=== PATIENT | female | born 1990 | race Caucasian/White ===

== ENCOUNTER → 2017-04-12 | Outpatient (CLI) | payer OTHER | END | disposition home or self-care (01) | LOC: Rad HDHVI 15:03 | PROVIDERS: ATTEND Internal Medicine Cardiovascular Disease | DX: R09.81 Nasal congestion (principal); R51 Headache | CPT/HCPCS: 70220 ==

== ENCOUNTER → 2017-05-01 | Outpatient (CLI) | payer OTHER ==
[2017-05-01 11:50] VITALS: BP 132/79
[2017-05-01 13:00] VITALS: BP 121/82
[2017-05-01 16:15] LABS: Basophils # (auto) 0 uL; Basophils % (auto) 0.3 % (0.0-2.0); CONDITION Y; Eosinophils # (auto) 0.1 uL; Eosinophils % (auto) 0.5 % (0.0-7.0); Hematocrit 45.9 % (36.0-46.0); Hemoglobin 15.4 g/dL (12.2-16.2); Lymphocytes # (auto) 2.1 uL; Lymphocytes % (auto) 21.1 % (10.0-50.0); Mean Corpuscular Hemoglobin 30.6 pg (28.0-32.0); Mean Corpuscular Hgb Conc. 33.6 g/dL (32.0-36.0); Mean Platelet Volume 9.1 fL (7.4-10.4); Monocytes # (auto) 0.8 uL; Monocytes % (auto) 7.7 % (0.0-12.0); Neutrophils # (auto) 7.1 uL; Neutrophils % (auto) 70.4 % (37.0-80.0); Platelet Count (auto) 347 10^3/uL (140-450); Red Cell Distribution Width 12.9 % (11.6-16.0)
[2017-05-01 16:25] LABS: BUN/Creatinine Ratio 15.2; Calcium 9.6 mg/dL (8.5-10.1); Magnesium 2.6 mg/dL (1.6-2.6); Potassium 3.6 mmol/L (3.5-5.1)
== END | disposition home or self-care (01) ==
LOC: CHF HDHVI 11:54
PROVIDERS: ATTEND Internal Medicine Cardiovascular Disease
DX: Z32.00 Encounter for pregnancy test, result unknown (principal); I10 Essential (primary) hypertension; E83.42 Hypomagnesemia; D64.9 Anemia, unspecified; R55 Syncope and collapse
CPT/HCPCS: 36415; 80048; 83735; 84702; 85025

== ENCOUNTER → 2017-05-04 | Outpatient (CLI) | payer OTHER ==
[2017-05-04 11:25] VITALS: BP_SYST 124; BP_SYST 128; BP_DIAS 83; BP_DIAS 86
[2017-05-04 12:10] VITALS: BP 119/74
== END | disposition home or self-care (01) ==
LOC: CHF HDHVI 11:24
PROVIDERS: ATTEND Internal Medicine Cardiovascular Disease
DX: I10 Essential (primary) hypertension (principal); R55 Syncope and collapse
CPT/HCPCS: G0463

== ENCOUNTER → 2017-05-12 | Outpatient (CLI) | payer OTHER | END | disposition home or self-care (01) | LOC: Rad HDHVI 08:06 | PROVIDERS: ATTEND Internal Medicine Cardiovascular Disease | DX: I08.0 Rheumatic disorders of both mitral and aortic valves (principal) | CPT/HCPCS: 93306 ==

== ENCOUNTER → 2018-04-27 | Outpatient (CLI) | payer OTHER ==
[~2018-04-27] VITALS: Ht 152.4 cm; Wt 54.4 kg
== END | disposition home or self-care (01) ==
LOC: Rad HDHVI 08:03
PROVIDERS: ATTEND Internal Medicine Cardiovascular Disease
DX: R07.89 Other chest pain (principal); I10 Essential (primary) hypertension
CPT/HCPCS: 93017

== ENCOUNTER → 2019-05-27 | Outpatient (CLI) | payer BC, OTHER | END | disposition home or self-care (01) | LOC: Rad HDHVI 08:05 | PROVIDERS: ATTEND Internal Medicine Cardiovascular Disease | DX: I47.9 Paroxysmal tachycardia, unspecified (principal); I10 Essential (primary) hypertension | CPT/HCPCS: 93306 ==

== ENCOUNTER → 2019-07-30 | Outpatient (CLI) | payer BC ==
[2019-07-30 08:43] LABS: Basophils # (auto) 0 uL; Basophils % (auto) 0.2 % (0.0-2.0); Eosinophils # (auto) 0 uL; Eosinophils % (auto) 0.4 % (0.0-7.0); Hematocrit 37.3 % (36.0-46.0); Hemoglobin 12.9 g/dL (12.2-16.2); Lymphocytes # (auto) 1.7 uL; Lymphocytes % (auto) 14.3 % (10.0-50.0); Mean Corpuscular Hemoglobin 32.1 pg (28.0-32.0); Mean Corpuscular Hgb Conc. 34.5 g/dL (32.0-36.0); Mean Corpuscular Volume 92.9 fL (80.0-100.0); Monocytes # (auto) 0.7 uL; Monocytes % (auto) 6.2 % (0.0-12.0); Neutrophils # (auto) 9.3 uL; Neutrophils % (auto) 78.9 % (37.0-80.0); Platelet Count (auto) 219 10^3/uL (140-450); Red Blood Cells 4.01 10^6/uL (4.0-5.20); Red Cell Distribution Width 13.3 % (11.8-14.3); White Blood Cell 11.7 10^3/uL (4.4-10.8)
== END | disposition home or self-care (01) ==
LOC: LAB 08:19
PROVIDERS: ATTEND Obstetrics & Gynecology
DX: O99.810 Abnormal glucose complicating pregnancy (principal); Z3A.27 27 weeks gestation of pregnancy
CPT/HCPCS: 36415; 82951; 83036; 85025

== ENCOUNTER 2019-08-28 09:02 | Observation (INO) | payer BC ==
[~2019-08-28] VITALS: Ht 152.4 cm; Wt 64.0 kg
[2019-08-28] MEDS ORDERED: LACTATED RINGER'S 1,000 ML IV ONE (10:30)
[2019-09-05] MEDS ORDERED: PREN-96 PO (09:19)
== END 2019-08-28 11:45 | disposition home or self-care (01) | DRG 832 ==
LOC: LDRP 09:02
PROVIDERS: ADMIT Obstetrics & Gynecology; ATTEND Obstetrics & Gynecology
DX: O60.03 Preterm labor without delivery, third trimester (principal); O99.413 Diseases of the circulatory system complicating pregnancy, third trimester; O24.410 Gestational diabetes mellitus in pregnancy, diet controlled; I49.3 Ventricular premature depolarization; Z3A.32 32 weeks gestation of pregnancy
CPT/HCPCS: 59025; 76818; 81002; 82948; 82962; G0378; 96365

== ENCOUNTER 2019-08-30 19:08 | Observation (INO) | payer BC ==
[2019-08-30] MEDS ORDERED: PREN-153 OR (19:44)
[2019-09-05] MEDS ORDERED: PREN-96 PO (09:19)
== END 2019-08-30 23:19 | disposition home or self-care (01) | DRG 833 ==
LOC: LDRP 19:08
PROVIDERS: ADMIT Specialist; ATTEND Specialist
DX: O60.03 Preterm labor without delivery, third trimester (principal); O62.9 Abnormality of forces of labor, unspecified; Z3A.32 32 weeks gestation of pregnancy
CPT/HCPCS: 59025; 81002; 82962; G0378

== ENCOUNTER 2019-09-02 13:09 | Observation (INO) | payer BC ==
[~2019-09-02] VITALS: Ht 152.4 cm; Wt 64.0 kg
[~2019-09-02 13:09] MED LIST: PREN-153 OR
[2019-09-05] MEDS ORDERED: PREN-96 PO (09:19)
== END 2019-09-02 14:50 | disposition home or self-care (01) | DRG 833 ==
LOC: LDRP 13:09
PROVIDERS: ADMIT Specialist; ATTEND Specialist
DX: O62.9 Abnormality of forces of labor, unspecified (principal); O24.419 Gestational diabetes mellitus in pregnancy, unspecified control; Z3A.33 33 weeks gestation of pregnancy
CPT/HCPCS: 59025; 76818; 81002; 82962; G0378

== ENCOUNTER 2019-09-05 10:24 | Emergency (ER) | payer BC ==
[~2019-09-05] VITALS: Ht 152.4 cm; Wt 64.4 kg
[~2019-09-05 10:24] MED LIST changes: +BETAMETHASONE ACET (6MG/ML) 5ML VIAL IM SCH; -PREN-153 OR; +PREN-96 PO
[2019-09-05 11:09] VITALS: BP 140/88
[2019-09-05] MEDS ORDERED: LACTATED RINGER'S 1,000 ML IV ONE (12:45)
== END 2019-09-05 12:10 | disposition home or self-care (01) ==
LOC: UNDODISOB 10:24 → UNDOADMOB 10:24 → TELE 10:24 → ER 10:24 → EDSTATUS 11:01 → ER 12:10
DX: O26.893 Other specified pregnancy related conditions, third trimester (principal); R42 Dizziness and giddiness; I49.3 Ventricular premature depolarization; Z3A.34 34 weeks gestation of pregnancy
CPT/HCPCS: 59025; 76818; 81002; 82962; 93005; 96372; 99284; J0702

== ENCOUNTER 2019-09-05 12:56 | Observation (INO) | payer BC ==
[~2019-09-05 12:56] MED LIST changes: -BETAMETHASONE ACET (6MG/ML) 5ML VIAL IM SCH; +PREN-153 OR
== END 2019-09-05 14:05 | disposition home or self-care (01) | DRG 566 ==
LOC: LDRP 12:56
PROVIDERS: ADMIT Specialist; ATTEND Specialist
DX: O60.03 Preterm labor without delivery, third trimester (principal); Z3A.33 33 weeks gestation of pregnancy
CPT/HCPCS: 59025; 81002; G0378

== ENCOUNTER 2019-09-06 11:32 | Observation (INO) | payer BC ==
[~2019-09-06 11:32] MED LIST changes: -PREN-153 OR
[2019-09-06] MEDS ORDERED: BETAMETHASONE ACET (6MG/ML) 5ML VIAL IM ONE (11:45)
== END 2019-09-06 12:55 | disposition home or self-care (01) | DRG 831 ==
LOC: LDRP 11:32
PROVIDERS: ADMIT Obstetrics & Gynecology; ATTEND Obstetrics & Gynecology
DX: O24.419 Gestational diabetes mellitus in pregnancy, unspecified control (principal); O60.03 Preterm labor without delivery, third trimester; Z3A.33 33 weeks gestation of pregnancy
CPT/HCPCS: 59025; 81002; 82948; 82962; 96372; G0378

== ENCOUNTER 2019-09-10 10:58 | Observation (INO) | payer BC ==
[~2019-09-10 10:58] MED LIST changes: +PREN-153 OR
== END 2019-09-10 12:15 | disposition home or self-care (01) | DRG 833 ==
LOC: LDRP 10:58
PROVIDERS: ADMIT Specialist; ATTEND Specialist
DX: O60.03 Preterm labor without delivery, third trimester (principal); O24.419 Gestational diabetes mellitus in pregnancy, unspecified control; Z3A.34 34 weeks gestation of pregnancy
CPT/HCPCS: 59025; 76818; 81002; 82948; G0378

== ENCOUNTER 2019-09-12 12:37 | Observation (INO) | payer BC ==
[~2019-09-12 12:37] MED LIST changes: -PREN-153 OR
[2019-09-12] MEDS ORDERED: LACTATED RINGER'S 1,000 ML IV ONE (13:15)
[2019-09-12] MEDS ORDERED: MAGNESIUM SULFATE 40MG/ML 1,000 ML IV SCH (13:18)
[2019-09-12] MEDS ORDERED: MAGN400C2 PO (13:22)
[2019-09-12] MEDS ORDERED: MAGNESIUM SULFATE 100 ML IV ONE (13:30)
[2019-09-12 14:05] LABS: Basophils # (auto) 0 uL; Basophils % (auto) 0.2 % (0.0-2.0); Eosinophils # (auto) 0 uL; Eosinophils % (auto) 0.2 % (0.0-7.0); Hematocrit 36.9 % (36.0-46.0); Hemoglobin 12.8 g/dL (12.2-16.2); Lymphocytes # (auto) 1.8 uL; Lymphocytes % (auto) 12.6 % (10.0-50.0); Mean Corpuscular Hemoglobin 31.6 pg (28.0-32.0); Mean Corpuscular Hgb Conc. 34.6 g/dL (32.0-36.0); Mean Corpuscular Volume 91.3 fL (80.0-100.0); Monocytes # (auto) 1.2 uL; Monocytes % (auto) 7.9 % (0.0-12.0); Neutrophils # (auto) 11.6 uL; Neutrophils % (auto) 79.1 % (37.0-80.0); Nucleated Red Blood Cells % 0.1 %; Platelet Count (auto) 223 10^3/uL (140-450); Red Blood Cells 4.04 10^6/uL (4.0-5.20); Red Cell Distribution Width 13.2 % (11.8-14.3); White Blood Cell 14.7 10^3/uL (4.4-10.8)
[2019-09-12 14:15] LABS: Urine Bacteria FEW /hpf (None Seen); Urine Blood Negative /uL (Negative); Urine Specific Gravity 1.005 (1.001-1.035); Urine WBC 1 /hpf (0 - 5)
[2019-09-12 14:23] LABS: INR 0.91 (0.9-1.15); Partial Thromboplastin Time 21.6 sec (23.64-32.05)
[2019-09-12 14:26] LABS: Albumin 3.2 g/dL (3.4-5.0); Calcium 8.4 mg/dL (8.5-10.1); Potassium 3.4 mmol/L (3.5-5.1)
[2019-09-12 14:34] LABS: BUN/Creatinine Ratio 14.3; Bilirubin, Total 0.3 mg/dL (0.2-1.0); Total Protein 7.1 g/dL (6.4-8.2); Uric Acid 3.5 mg/dL (2.6-6.0)
== END 2019-09-12 15:10 | disposition short-term general hospital (02) | DRG 566 ==
LOC: LDRP 12:37
PROVIDERS: ADMIT Specialist; ATTEND Specialist
DX: O60.03 Preterm labor without delivery, third trimester (principal); O24.410 Gestational diabetes mellitus in pregnancy, diet controlled; O26.893 Other specified pregnancy related conditions, third trimester; R03.0 Elevated blood-pressure reading, without diagnosis of hypertension; Z86.79 Personal history of other diseases of the circulatory system; Z3A.34 34 weeks gestation of pregnancy
CPT/HCPCS: 36415; 51702; 59025; 80053; 81001; 81002; 82962; 83036; 84550; 85025; 85379; 85610; 85730; 86850; 86900; 86901; 94760; 96365; 96366; G0378; J3475; 96361

== ENCOUNTER 2019-09-25 10:51 | Observation (INO) | payer BC ==
[~2019-09-25] VITALS: Ht 152.4 cm; Wt 65.3 kg
[~2019-09-25 10:51] MED LIST changes: +MAGN400C2 PO
[2019-09-25] MEDS ORDERED: BETAMETHASONE ACET (6MG/ML) 5ML VIAL IM ONE (12:00)
[2019-09-25 12:25] LABS: Basophils # (auto) 0 uL; Basophils % (auto) 0.2 % (0.0-2.0); Eosinophils # (auto) 0 uL; Eosinophils % (auto) 0.1 % (0.0-7.0); Hematocrit 37.8 % (36.0-46.0); Hemoglobin 13.1 g/dL (12.2-16.2); Lymphocytes # (auto) 1.1 uL; Lymphocytes % (auto) 11.9 % (10.0-50.0); Mean Corpuscular Hgb Conc. 34.8 g/dL (32.0-36.0); Mean Corpuscular Volume 92.1 fL (80.0-100.0); Monocytes # (auto) 0.6 uL; Monocytes % (auto) 6.4 % (0.0-12.0); Neutrophils # (auto) 7.4 uL; Neutrophils % (auto) 81.4 % (37.0-80.0); Platelet Count (auto) 178 10^3/uL (140-450); Red Cell Distribution Width 13.3 % (11.8-14.3); White Blood Cell 9.1 10^3/uL (4.4-10.8)
[2019-09-25 13:01] LABS: Albumin 3.3 g/dL (3.4-5.0); Calcium 8.2 mg/dL (8.5-10.1); Potassium 3.5 mmol/L (3.5-5.1); Uric Acid 3.7 mg/dL (2.6-6.0)
[2019-09-25 13:04] LABS: BUN/Creatinine Ratio 11.1; Bilirubin, Total 0.3 mg/dL (0.2-1.0); Total Protein 7.6 g/dL (6.4-8.2)
[2019-09-25] MEDS ORDERED: BETAMETHASONE ACET (6MG/ML) 5ML VIAL IM SCH (13:40)
== END 2019-09-25 14:00 | disposition home or self-care (01) | DRG 833 ==
LOC: LDRP 10:51
PROVIDERS: ADMIT Specialist; ATTEND Specialist
DX: O13.3 Gestational [pregnancy-induced] hypertension without significant proteinuria, third trimester (principal); O24.419 Gestational diabetes mellitus in pregnancy, unspecified control; Z3A.36 36 weeks gestation of pregnancy
CPT/HCPCS: 36415; 59025; 76818; 80053; 81002; 82962; 83036; 84112; 84550; 85025; 86592; 96372; G0378; J0702

== ENCOUNTER 2019-09-27 09:03 | Observation (INO) | payer BC ==
[2019-09-27 09:57] LABS: Protein, Urine < 5.0 mg/dL (0.0-11.9)
[2019-09-27 10:21] LABS: 24 Hr. Total Protein, Urine 154.99969 mg/24 Hr (<149.1); Urine Total Volume, 24 Hours 3100 mL
== END 2019-09-27 10:35 | disposition home or self-care (01) | DRG 833 ==
LOC: LDRP 09:03
PROVIDERS: ADMIT Obstetrics & Gynecology; ATTEND Obstetrics & Gynecology
DX: O24.419 Gestational diabetes mellitus in pregnancy, unspecified control (principal); Z3A.36 36 weeks gestation of pregnancy
CPT/HCPCS: 59025; 81002; 82948; 82962; 84156; G0378

== ENCOUNTER 2019-10-04 10:02 | Observation (INO) | payer BC | END 2019-10-04 11:10 | disposition home or self-care (01) | DRG 833 | LOC: LDRP 10:23 | PROVIDERS: ADMIT Obstetrics & Gynecology; ATTEND Obstetrics & Gynecology | DX: O62.9 Abnormality of forces of labor, unspecified (principal); Z3A.37 37 weeks gestation of pregnancy | CPT/HCPCS: 59025; 76818; 81002; 82948; 82962; G0378 ==

== ENCOUNTER 2019-10-11 08:13 | Observation (INO) | payer BC | END 2019-10-11 09:50 | disposition home or self-care (01) | DRG 833 | LOC: LDRP 08:13 | PROVIDERS: ADMIT Obstetrics & Gynecology; ATTEND Obstetrics & Gynecology | DX: O24.410 Gestational diabetes mellitus in pregnancy, diet controlled (principal); Z3A.38 38 weeks gestation of pregnancy | CPT/HCPCS: 59025; 76818; 81002; 82962; G0378 ==

== ENCOUNTER → 2020-01-02 | Outpatient (CLI) | payer BC | END | disposition home or self-care (01) | LOC: LAB 09:47 | PROVIDERS: ATTEND Obstetrics & Gynecology | DX: O99.810 Abnormal glucose complicating pregnancy (principal); Z3A.00 Weeks of gestation of pregnancy not specified | CPT/HCPCS: 36415; 82951 ==